=== PATIENT | male | born 1975 | race Caucasian/White ===

== ENCOUNTER 2021-01-14 12:31 | Emergency (ER) | payer MEDICAID ==
[~2021-01-14] VITALS: Ht 170.2 cm; Wt 90.7 kg
[2021-01-14 12:34] VITALS: BP 190/113
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
--- NOTE | 2021-01-14 13:02 | NUR ---
ANDRES Dorado is evaluating the patient at bedside.
[2021-01-14] MEDS ORDERED: IBUPROFEN 600 MG TAB PO ONE (13:05)
[2021-01-14] MEDS ORDERED: BACITRACIN OINT 500 UNITS/GM PKT TP ONE (13:05)
[2021-01-14] MEDS ORDERED: BACI1PAC6 TP (13:41)
[2021-01-14] MEDS ORDERED: AMOX1TAB8 PO (13:41)
[2021-01-14] MEDS ORDERED: IBUP-2213 PO (13:41)
--- NOTE | 2021-01-14 13:58 | NUR ---
PT WOUND IRRIGATED WITH NORMAL SALINE AND APPLIED BACITRACIN, DRESSED WITH BANDAID.
[2021-01-14 14:00] VITALS: BP 190/113
--- NOTE | 2021-01-14 14:00 | NUR ---
Patient discharged with v/s stable. Written and verbal after care instructions given and explained. Patient alert, oriented and verbalized understanding of instructions. Ambulatory with steady gait. All questions addressed prior to discharge. ID band removed. Patient advised to follow up with PMD. Rx of AMOXICILLIN, BACITRACIN, IBUPROFEN given. Patient educated on indication of medication including possible reaction and side effects. Opportunity to ask questions provided and answered.
== END 2021-01-14 13:49 | disposition home or self-care (01) ==
LOC: MED 12:31 → EDBD 12:31 → MED 13:49
DX: S41.052A Open bite of left shoulder, initial encounter (principal); E11.9 Type 2 diabetes mellitus without complications; Z79.899 Other long term (current) drug therapy; W54.0XXA Bitten by dog, initial encounter; Y93.89 Activity, other specified; Y92.89 Other specified places as the place of occurrence of the external cause; Y99.8 Other external cause status
CPT/HCPCS: 90715; 99283